=== PATIENT | male | born 1970 | race Caucasian/White ===

== ENCOUNTER 2018-01-16 08:00 | Emergency (ER) | payer SELFPAY ==
[~2018-01-16] VITALS: Ht 180.3 cm; Wt 86.2 kg
[2018-01-16 08:34] VITALS: BP 137/88
[2018-01-16] MEDS ORDERED: IBUPROFEN 800 MG TAB PO ONE (09:00)
[2018-01-16] MEDS ORDERED: cefTRIAXone SOD 1,000 MG VL IM ONE (09:00)
== END 2018-01-16 09:22 | disposition home or self-care (01) ==
LOC: ER 08:07
DX: K05.00 Acute gingivitis, plaque induced (principal); F17.210 Nicotine dependence, cigarettes, uncomplicated
CPT/HCPCS: 96372; 99283; J0696